=== PATIENT | male | born 1980 | race Caucasian/White ===

== ENCOUNTER 2017-03-07 09:01 | Observation (INO) | payer SELFPAY ==
[2017-03-07] MEDS ORDERED: ONDANSETRON HCL/PF 4 MG/ 2ML VIAL ONE (09:28)
--- NOTE | 2017-03-07 09:39 | ED Physician Documentation ---
Chest Pain - HISTORIAN Historian: patient - HPI Chief Complaint: General Adult Onset: hours Timing: gradual onset Duration: constant Last known Well Date: 03/07/17 Last Known Well Time: 00:00 Context: rest Severity: moderate Quality: other (thumping feeling) Chest Pain Radiation: no radiation Chest Pain Signs/Symptoms: nausea, vomiting. denies: diaphoresis Worsened By: nothing Further Comments: yes (Patient states that he si an alcoholic. Patient was drinking for 7 years. Stopped drinking for about 3 years. Started drinking again 4 days ago. Normally drinks Vodka drinking 1/2 liter per day. Last drink was about 9 PM. This am started to have some chest discomfort. No precipitating or modifying factors noted.) - ROS CONST: no problems - PAST HX NE risk factors: no pertinent history DVT/PE Risk Factors: none Allergies/Adverse Reactions: Allergies Allergy/AdvReac Type Severity Reaction Status Date / Time No Known Allergies Allergy Unverified 03/07/17 09:55 Home Medications: Ambulatory Orders Medication Instructions Recorded NK [NK] 03/07/17 - SOCIAL HX Smoking History: non-smoker Alcohol Use: heavy (as above) Drug Use: none - FAMILY HX Family HX: none - REVIEWED ASSESSMENTS Nursing Assessment Reviewed: Yes Vitals Reviewed: Yes ED Results Lab/Radiology - Orders Orders: ED Orders Category Date Time Status Place Saline Lock/IV Now Care 03/07/17 09:15 Active CHEST P.A.&LAT 2 VIEWS [RAD] Routine Exams 03/07/17 Ordered CBC/PLATELET/DIFF Routine Lab 03/07/17 Ordered CMP Routine Lab 03/07/17 Ordered ETHANOL MEDICAL USE ONLY Routine Lab 03/07/17 Ordered URINALYSIS Routine Lab 03/07/17 Uncollected Urine drug screen [DRUG SCREEN URINE MEDICAL ONLY] Lab 03/07/17 Ordered Routine Ondansetron HCl/Pf [Zofran 4 mg/2 ml] Med 03/07/17 09:28 Discontinued 4 mg .ROUTE .STK-MED ONE Chest Pain Physical Exam - EXAM General Appearance: alert, mild distress Neck: nml inspection, no carotid bruit, JVD present Respiratory: no resp. distress, chest non-tender, nml breath sounds CVS: tachycardia (sinus tach) Abdomen: soft, no organomegaly, normal bowel sounds, no abdominal bruit, no distension, non-tender Skin: warm/dry, normal color Extremities: non-tender Neuro: oriented X3, CN's nml as tested, mood/affect nml, cognition normal, other (tremors. ) Discharge Clincal Impression: Alcohol dependence Home Medications: Ambulatory Orders NK [NK] 03/07/17 Condition: Stable Disposition: 01 HOME, SELF-CARE Decision to Admit: [id number] Date of Decison to Admit: 03/07/17 Decision Time: 11:30
[2017-03-07 09:48] LABS: APPEARANCE,URINE Clear (CLEAR); BASOPHILS % 0.5 (0.0-1.5); COLOR,URINE Yellow (YELLOW); EOSINOPHILS % 0.5 % (0.0-6.8); MEAN CORPUSCULAR HEMOGLOBIN 28.8 pg (28.0-34.0); MEAN CORPUSCULAR VOLUME 87.5 fl (80.0-100.0); MONOCYTES % 3.3 % (0.0-11.0); NEUTROPHILS # 6.5 # k/uL (1.4-7.7); OCCULT BLOOD,URINE Negative (NEGATIVE); UROBILINOGEN URINE 0.2 Eu (0.2-1.0)
[2017-03-07 09:52] LABS: AMPHETAMINE NEGATIVE ng/mL (<1000); BARBITURATES NEGATIVE ng/mL (<300); CANNABINOIDS NEGATIVE ng/mL (<50); COCAINE NEGATIVE ng/mL (<150); METHAMPHETAMINE NEGATIVE ng/mL (<1000); METHYLENEDIOXYMETHAMPHETAMINE NEGATIVE ng/mL (<500)
[2017-03-07 09:56] LABS: AMORPHOUS SEDIMENT,UR FEW (NEGATIVE)
[2017-03-07] MEDS ORDERED: ONDANSETRON HCL/PF 4 MG/ 2ML VIAL IVP ONE (10:03)
[2017-03-07 10:04] LABS: eGFR (African) > 60; eGFR (Non-African) > 60
[2017-03-07] MEDS ORDERED: LORazepam 2 MG/ML VIAL IVP ONE (10:13)
[2017-03-07] MEDS ORDERED: KETOROLAC TROMETHAMINE 30 MG/1ML VIAL IVP ONE (11:12)
[2017-03-07] MEDS ORDERED: ONDANSETRON HCL/PF 4 MG/ 2ML VIAL IVP PRN (12:20)
[2017-03-07] MEDS ORDERED: ACETAMINOPHEN 500 MG TABLET PO PRN ×2 (12:20→12:45)
[2017-03-07] MEDS ORDERED: ACETAMINOPHEN 500 MG TABLET ONE (12:42)
--- NOTE | 2017-03-07 12:53 | Diagnostic Imaging Report ---
[facility] [place] [facility] [address] [facility] [place] [facility] [address] [place], [place]. [address] Report Submission Date: March 07, 2017 9:52:05 AM CDT Patient Study Name: SILAS HELTON Date: March 07, 2017 9:38:41 AM CDT Modality Type: CR Gender: M Description: CHEST : 78 Institution: [facility] Physician INEZ SPENCER - KAT Chest -two views CLINICAL HISTORY: Chest pain. FINDINGS: Examination of the chest in PA and lateral views with no prior film for comparison demonstrates the lungs to be clear. Cardiovascular and mediastinal silhouettes are normal. Monitor leads superimpose the chest. IMPRESSION: Negative chest. Electronically signed on March 07, 2017 9:52:05 AM CDT by: Fabien WAYNE
[2017-03-07] MEDS: THIAMINE HCL 100 MG, MVI, ADULT NO.1 WITH VIT K 10 ML, FOLIC ACID 5 MG in 0.9 % SODIUM ... IV SCH ×8 (13:11→23:20)
[2017-03-07] MEDS: LORazepam 1 MG TABLET PO PRN ×6 (13:14→23:15)
[2017-03-07 14:45] VITALS: BMI 28.7
[2017-03-07] MEDS ORDERED: MAG HYDROX/AL HYDROX/SIMETH 30 ML UDC PO PRN (15:07)
[2017-03-07] MEDS ORDERED: PANTOPRAZOLE SODIUM 40 MG TABLET PO ONE (15:07)
[2017-03-07] MEDS ORDERED: THIAMINE HCL 100 MG TABLET PO ONE (22:37)
[2017-03-07] MEDS ORDERED: CARBAMAZEPINE 200 MG TABLET PO ONE (22:38)
[2017-03-08] MEDS: SALINE FLUSH 10 ML DISP.SYRIN IV SCH ×2 (04:53→10:48)
[2017-03-08 06:54] LABS: eGFR (African) > 60; eGFR (Non-African) > 60
[2017-03-08] MEDS ORDERED: PANTOPRAZOLE SODIUM 40 MG TABLET PO SCH (07:00)
[2017-03-08] MEDS ORDERED: 0.9 % SODIUM CHLORIDE 1,000 ML IV ONE (08:39)
[2017-03-08] MEDS ORDERED: THIAMINE HCL 100 MG TABLET PO SCH (09:00)
[2017-03-08] MEDS ORDERED: CARBAMAZEPINE 200 MG TABLET PO SCH (09:00)
[2017-03-08] MEDS: THIAMINE HCL 100 MG, MVI, ADULT NO.1 WITH VIT K 10 ML, FOLIC ACID 5 MG in 0.9 % SODIUM ... IV SCH ×4 (09:26)
[2017-03-08 13:58] VITALS: BP 131/81
--- NOTE | 2017-03-08 15:32 | Discharge Summary ---
Discharge Summary - Discharge Sumary History of Present Illness: Patient states that he is an alcoholic. Patient was drinking for 7 years. Stopped drinking for about 3 years. Started drinking again 4 days ago. Normally drinks Vodka drinking 1/2 liter per day. Last drink was about 9 PM. This am started to have some chest discomfort. No precipitating or modifying factors noted.Patient stated he would like to stop drinking alcohol once again but is concerned about withdrawal problems. Patient was subsequently admitted to the hospital for alcohol withdrawal assistance. Condition at Discharge: Stable Home Medications: Ambulatory Orders Medication Instructions Recorded NK [NK] 03/07/17 Consultations this Visit: None Allergies/Adverse Reactions: Allergies Allergy/AdvReac Type Severity Reaction Status Date / Time No Known Allergies Allergy Unverified 03/07/17 09:55 Discharge Summary: Patient was started on IV fluids with thiamine. Patient was given Ativan as needed for withdrawal symptoms. Patient did well. Patient did not have any DTs were seizures. At the time of dismissal was felt that the patient could be managed on an outpatient basis and was subsequently discharged. Patient does have a plan to seek further assistance and treatment for his alcohol dependency. - Final Diagnosis (1) Alcohol dependence Problems:
[2017-03-08] MEDS: 0.9 % SODIUM CHLORIDE 1,000 ML IV SCH ×2 (16:10→16:11)
== END 2017-03-08 16:15 | disposition home or self-care (01) ==
LOC: ED 09:01 → UNDOADMOB 11:49 → SOUTH 11:49
PROVIDERS: ADMIT Family Medicine; ATTEND Family Medicine
CPT/HCPCS: 36415; 71020; 80053; 80320; 80377; 81002; 84484; 85025; 96361; 96365; 96375; 96376; J1885; J2060; J2405; J3411; J3490; G0378; G0480; G0481; J7030; S1016